=== PATIENT | female | born 1955 | race Caucasian/White ===

== ENCOUNTER 2025-06-20 13:29 | Inpatient (IN) ==
[2025-06-20] MEDS ORDERED: IOPAMIDOL 100 ML BOTTLE IV ONE (13:30)
[2025-06-20] MEDS: 0.9 % SODIUM CHLORIDE 1,000 ML IV ONE (13:55)
[2025-06-20] MEDS: ONDANSETRON 4 MG/2 ML VIAL IV ONE (13:58)
[2025-06-20 14:11] LABS: Basophils # (Auto) 0.03 K/mcL (0.00-0.30); Basophils % (Auto) 0.3 % (0.0-2.0); Eosinophils # (Auto) 0.22 K/mcL (0.00-0.70); Eosinophils % (Auto) 2.0 % (0.0-7.0); Hematocrit 43.9 % (34.1-44.9); Hemoglobin 14.1 g/dL (11.2-15.7); Lymphocytes # (Auto) 1.19 K/mcL (1.50-4.80); Lymphocytes % (Auto) 10.7 % (15.5-49.0); Mean Corpuscular HGB Conc 32.1 g/dL (31.0-36.0); Monocytes # (Auto) 0.76 K/mcL (0.10-0.90); Monocytes % (Auto) 6.9 % (1.0-12.0); Neutrophils % (Auto) 79.7 % (38.0-78.0); Platelet Count 246 K/mcL (140-440); RBC 4.69 M/mcL (3.59-5.38); WBC 11.1 K/mcL (4.5-11.0)
[2025-06-20 14:31] LABS: ALT/SGPT 97 U/L (<40); AST/SGOT 149 U/L (<32); Albumin 3.9 gm/dL (3.2-5.2); Albumin/Globulin Ratio 1.2 (1.0-2.3); Alkaline Phosphatase 136 U/L (39-117); Anion Gap 11.0 (8.0-16.0); Bilirubin,Total 0.9 mg/dL (0.1-1.0); Blood Urea Nitrogen 11 mg/dL (8-23); Calcium 10.7 mg/dL (8.6-10.4); Carbon Dioxide 22 mmol/L (22-30); Chloride 105 mmol/L (96-108); Globulin 3.2 gm/dL (2.2-3.7); Glucose 110 mg/dL (70-105); Potassium 3.8 mmol/L (3.3-5.1); Sodium 138 mmol/L (133-145)
[2025-06-20] MEDS: MAG HYDROX/AL HYDROX/SIMETH 30 ML ORAL.SUSP PO ONE (15:34)
[2025-06-20] MEDS: PANTOPRAZOLE 40 MG VIAL IV ONE (15:35)
[2025-06-20] MEDS: ACETAMINOPHEN 325 MG TABLET PO ONE (16:04)
[2025-06-20 16:14] LABS: Bacteria,Urine Many /hpf (0); Bilirubin,Urine NEGATIVE (Negative); Color,Urine LT. YELLOW; Glucose,Urine (UA) NEGATIVE (Negative); Ketones,Urine NEGATIVE (Negative); Leukocyte Esterase,Urine TRACE /uL (Negative); PH,Urine 6.5 (5.0-9.0); Protein,Urine NEGATIVE (Negative); Specific Gravity,Urine 1.010 (1.000-1.035); Urobilinogen,Urine 1.0 mg/dL
[2025-06-20] MEDS: KETOROLAC 15 MG/ML VIAL IV ONE (16:54)
[2025-06-20 17:03] LABS: HDL Cholesterol 74 mg/dL (>40); LDL Cholesterol,Calculated 133 mg/dL (<100); Triglycerides 95 mg/dL (<150)
[2025-06-20] MEDS: 0.9 % SODIUM CHLORIDE 1,000 ML IV SCH (17:14)
[2025-06-20 17:49] LABS: Barbiturate Screen,Urine None detected; Benzodiazepines Screen,Urine Suspect positive; Fentanyl, Urine Screen None Detected; Opiate Screen,Urine None detected; Oxycodone, Urine Screen None detected; Phencyclidine Screen,Urine None detected
[2025-06-20] MEDS ORDERED: SENNOSIDES 1 TABLET PO PRN (19:19)
[2025-06-20] MEDS ORDERED: NALOXONE HCL 0.4 MG/ML VIAL IV PRN (19:19)
[2025-06-20] MEDS: LACTATED RINGERS 1,000 ML IV SCH (19:40)
[2025-06-20 20:07] LABS: Hematocrit 41.8 % (34.1-44.9); Hemoglobin 13.4 g/dL (11.2-15.7)
[2025-06-20] MEDS: 0.9 % SODIUM CHLORIDE 10 ML SYRINGE IV SCH (20:09)
[2025-06-20 20:28] LABS: C-Reactive Protein 1.69 mg/dL (0.03-0.80)
[2025-06-20 20:30] LABS: ALT/SGPT 365 U/L (<40); AST/SGOT 665 U/L (<32); Albumin 3.5 gm/dL (3.2-5.2); Albumin/Globulin Ratio 1.3 (1.0-2.3); Alkaline Phosphatase 189 U/L (39-117); Anion Gap 11.0 (8.0-16.0); Bilirubin,Total 1.7 mg/dL (0.1-1.0); Blood Urea Nitrogen 8 mg/dL (8-23); Calcium 9.7 mg/dL (8.6-10.4); Carbon Dioxide 22 mmol/L (22-30); Chloride 107 mmol/L (96-108); Globulin 2.8 gm/dL (2.2-3.7); Glucose 146 mg/dL (70-105); Potassium 3.9 mmol/L (3.3-5.1); Sodium 140 mmol/L (133-145)
[2025-06-20] MEDS: HEPARIN 5,000 UNIT/ML VIAL SQ SCH (20:35)
[2025-06-20] MEDS: LACTATED RINGERS 500 ML IV ONE (22:03)
[2025-06-21 01:57] LABS: ALT/SGPT 473 U/L (<40); AST/SGOT 634 U/L (<32); Albumin 3.5 gm/dL (3.2-5.2); Albumin/Globulin Ratio 1.2 (1.0-2.3); Alkaline Phosphatase 230 U/L (39-117); Anion Gap 10.0 (8.0-16.0); Bilirubin,Total 2.1 mg/dL (0.1-1.0); Blood Urea Nitrogen 7 mg/dL (8-23); Calcium 9.6 mg/dL (8.6-10.4); Carbon Dioxide 24 mmol/L (22-30); Chloride 107 mmol/L (96-108); Globulin 2.9 gm/dL (2.2-3.7); Glucose 130 mg/dL (70-105); Potassium 4.1 mmol/L (3.3-5.1); Sodium 141 mmol/L (133-145)
[2025-06-21 06:19] LABS: Basophils # (Auto) 0.01 K/mcL (0.00-0.30); Basophils % (Auto) 0.1 % (0.0-2.0); Eosinophils # (Auto) 0.05 K/mcL (0.00-0.70); Eosinophils % (Auto) 0.4 % (0.0-7.0); Hematocrit 40.4 % (34.1-44.9); Hemoglobin 12.9 g/dL (11.2-15.7); Lymphocytes # (Auto) 0.46 K/mcL (1.50-4.80); Lymphocytes % (Auto) 3.9 % (15.5-49.0); Mean Corpuscular HGB Conc 31.9 g/dL (31.0-36.0); Monocytes # (Auto) 0.76 K/mcL (0.10-0.90); Monocytes % (Auto) 6.4 % (1.0-12.0); Neutrophils % (Auto) 88.8 % (38.0-78.0); Platelet Count 217 K/mcL (140-440); RBC 4.28 M/mcL (3.59-5.38); WBC 11.9 K/mcL (4.5-11.0)
[2025-06-21 06:30] LABS: C-Reactive Protein 6.83 mg/dL (0.03-0.80)
[2025-06-21 06:32] LABS: ALT/SGPT 458 U/L (<40); AST/SGOT 493 U/L (<32); Albumin 3.4 gm/dL (3.2-5.2); Albumin/Globulin Ratio 1.2 (1.0-2.3); Alkaline Phosphatase 240 U/L (39-117); Anion Gap 9.0 (8.0-16.0); Bilirubin,Direct 2.0 mg/dL (<0.3); Bilirubin,Total 2.4 mg/dL (0.1-1.0); Blood Urea Nitrogen 6 mg/dL (8-23); Calcium 9.3 mg/dL (8.6-10.4); Carbon Dioxide 24 mmol/L (22-30); Chloride 108 mmol/L (96-108); Globulin 2.8 gm/dL (2.2-3.7); Glucose 116 mg/dL (70-105); Phosphorous 3.2 mg/dL (2.5-4.5); Potassium 4.0 mmol/L (3.3-5.1); Sodium 141 mmol/L (133-145); Triglycerides 60 mg/dL (<150); Uric Acid 4.0 mg/dL (2.5-8.0)
[2025-06-21] MEDS: ONDANSETRON 4 MG/2 ML VIAL IV PRN (15:35)
[2025-06-21 15:37] LABS: ALT/SGPT 383 U/L (<40); AST/SGOT 312 U/L (<32); Albumin 3.2 gm/dL (3.2-5.2); Albumin/Globulin Ratio 1.3 (1.0-2.3); Alkaline Phosphatase 229 U/L (39-117); Anion Gap 7.0 (8.0-16.0); Bilirubin,Direct 2.4 mg/dL (<0.3); Bilirubin,Total 2.9 mg/dL (0.1-1.0); Blood Urea Nitrogen 8 mg/dL (8-23); Calcium 8.9 mg/dL (8.6-10.4); Carbon Dioxide 24 mmol/L (22-30); Chloride 109 mmol/L (96-108); Globulin 2.4 gm/dL (2.2-3.7); Glucose 101 mg/dL (70-105); Phosphorous 2.5 mg/dL (2.5-4.5); Potassium 3.7 mmol/L (3.3-5.1); Sodium 140 mmol/L (133-145); Triglycerides 52 mg/dL (<150); Uric Acid 4.1 mg/dL (2.5-8.0)
[2025-06-22 06:49] LABS: Basophils # (Auto) 0.01 K/mcL (0.00-0.30); Basophils % (Auto) 0.2 % (0.0-2.0); Eosinophils # (Auto) 0.54 K/mcL (0.00-0.70); Eosinophils % (Auto) 8.1 % (0.0-7.0); Hematocrit 39.0 % (34.1-44.9); Hemoglobin 12.1 g/dL (11.2-15.7); Lymphocytes # (Auto) 0.98 K/mcL (1.50-4.80); Lymphocytes % (Auto) 14.7 % (15.5-49.0); Mean Corpuscular HGB Conc 31.0 g/dL (31.0-36.0); Monocytes # (Auto) 0.69 K/mcL (0.10-0.90); Monocytes % (Auto) 10.4 % (1.0-12.0); Neutrophils % (Auto) 66.1 % (38.0-78.0); Platelet Count 192 K/mcL (140-440); RBC 4.02 M/mcL (3.59-5.38); WBC 6.7 K/mcL (4.5-11.0)
[2025-06-22 06:57] LABS: ALT/SGPT 320 U/L (<40); AST/SGOT 196 U/L (<32); Albumin 3.1 gm/dL (3.2-5.2); Albumin/Globulin Ratio 1.1 (1.0-2.3); Alkaline Phosphatase 237 U/L (39-117); Anion Gap 9.0 (8.0-16.0); Bilirubin,Direct 2.3 mg/dL (<0.3); Bilirubin,Total 2.7 mg/dL (0.1-1.0); Blood Urea Nitrogen 9 mg/dL (8-23); Calcium 9.0 mg/dL (8.6-10.4); Carbon Dioxide 21 mmol/L (22-30); Chloride 105 mmol/L (96-108); Globulin 2.9 gm/dL (2.2-3.7); Glucose 68 mg/dL (70-105); Phosphorous 2.3 mg/dL (2.5-4.5); Potassium 3.7 mmol/L (3.3-5.1); Sodium 135 mmol/L (133-145); Triglycerides 72 mg/dL (<150); Uric Acid 3.9 mg/dL (2.5-8.0)
[2025-06-22] MEDS: LACTATED RINGERS 1,000 ML IV SCH ×2 (12:49→16:08)
[2025-06-22] MEDS: IPRATROPIUM/ALBUTEROL 3 ML AMPUL.NEB NEB SCH (13:26)
[2025-06-22] MEDS: VERAPAMIL 120 MG TAB.XL.24H PO SCH (21:53)
[2025-06-23 07:20] LABS: ALT/SGPT 219 U/L (<40); AST/SGOT 91 U/L (<32); Albumin 3.1 gm/dL (3.2-5.2); Albumin/Globulin Ratio 1.1 (1.0-2.3); Alkaline Phosphatase 251 U/L (39-117); Anion Gap 8.0 (8.0-16.0); Bilirubin,Direct 1.3 mg/dL (<0.3); Bilirubin,Total 1.6 mg/dL (0.1-1.0); Blood Urea Nitrogen 6 mg/dL (8-23); Calcium 8.9 mg/dL (8.6-10.4); Carbon Dioxide 25 mmol/L (22-30); Chloride 106 mmol/L (96-108); Globulin 2.8 gm/dL (2.2-3.7); Glucose 78 mg/dL (70-105); Phosphorous 2.3 mg/dL (2.5-4.5); Potassium 3.9 mmol/L (3.3-5.1); Sodium 139 mmol/L (133-145); Triglycerides 98 mg/dL (<150); Uric Acid 4.2 mg/dL (2.5-8.0)
[2025-06-23] MEDS: LEVOTHYROXINE 100 MCG TABLET PO SCH (08:17)
[2025-06-23] MEDS: LEVOTHYROXINE 75 MCG TABLET PO SCH (08:17)
[2025-06-23] MEDS: LOSARTAN 25 MG TABLET PO SCH (08:17)
[2025-06-23] MEDS: Fluticasone-Umeclidin-Vilanter [Trelegy Ellipta] 200MCG-62.5MCG-25MCG Inhaler INH SCH (08:18)
[2025-06-23 08:48] LABS: Basophils # (Auto) 0.03 K/mcL (0.00-0.30); Basophils % (Auto) 0.5 % (0.0-2.0); Eosinophils # (Auto) 0.39 K/mcL (0.00-0.70); Eosinophils % (Auto) 6.5 % (0.0-7.0); Hematocrit 37.4 % (34.1-44.9); Hemoglobin 11.5 g/dL (11.2-15.7); Lymphocytes # (Auto) 1.22 K/mcL (1.50-4.80); Lymphocytes % (Auto) 20.5 % (15.5-49.0); Mean Corpuscular HGB Conc 30.7 g/dL (31.0-36.0); Monocytes # (Auto) 0.69 K/mcL (0.10-0.90); Monocytes % (Auto) 11.6 % (1.0-12.0); Neutrophils % (Auto) 60.6 % (38.0-78.0); Platelet Count 191 K/mcL (140-440); RBC 3.85 M/mcL (3.59-5.38); WBC 6.0 K/mcL (4.5-11.0)
[2025-06-23] MEDS: POTASSIUM PHOSPHATE 20 MEQ in DEXTROSE 5% IN WATER 250 ML IV ONE (11:42)
[2025-06-23] MEDS: LACTATED RINGERS 1,000 ML IV SCH (18:02)
[2025-06-24 06:18] LABS: Basophils # (Auto) 0.01 K/mcL (0.00-0.30); Basophils % (Auto) 0.1 % (0.0-2.0); Eosinophils # (Auto) 0.18 K/mcL (0.00-0.70); Eosinophils % (Auto) 2.4 % (0.0-7.0); Hematocrit 37.4 % (34.1-44.9); Hemoglobin 12.0 g/dL (11.2-15.7); Lymphocytes # (Auto) 1.31 K/mcL (1.50-4.80); Lymphocytes % (Auto) 17.6 % (15.5-49.0); Mean Corpuscular HGB Conc 32.1 g/dL (31.0-36.0); Monocytes # (Auto) 0.77 K/mcL (0.10-0.90); Monocytes % (Auto) 10.3 % (1.0-12.0); Neutrophils % (Auto) 68.9 % (38.0-78.0); Platelet Count 222 K/mcL (140-440); RBC 4.00 M/mcL (3.59-5.38); WBC 7.5 K/mcL (4.5-11.0)
[2025-06-24 09:05] LABS: ALT/SGPT 175 U/L (<40); AST/SGOT 65 U/L (<32); Albumin 3.2 gm/dL (3.2-5.2); Albumin/Globulin Ratio 1.1 (1.0-2.3); Alkaline Phosphatase 299 U/L (39-117); Anion Gap 11.0 (8.0-16.0); Bilirubin,Direct 1.2 mg/dL (<0.3); Bilirubin,Total 1.5 mg/dL (0.1-1.0); Blood Urea Nitrogen 3 mg/dL (8-23); Calcium 9.0 mg/dL (8.6-10.4); Carbon Dioxide 25 mmol/L (22-30); Chloride 104 mmol/L (96-108); Globulin 2.9 gm/dL (2.2-3.7); Glucose 84 mg/dL (70-105); Phosphorous 2.0 mg/dL (2.5-4.5); Potassium 3.4 mmol/L (3.3-5.1); Sodium 140 mmol/L (133-145); Triglycerides 97 mg/dL (<150); Uric Acid 3.8 mg/dL (2.5-8.0)
[2025-06-24] MEDS: NEUTRA PHOS 1 PACKET PO ONE (09:35)
[2025-06-24] MEDS: POTASSIUM PHOSPHATE 40 MEQ in DEXTROSE 5% IN WATER 500 ML IV ONE (09:35)
== END 2025-06-24 14:55 | disposition home or self-care (01) | DRG 440 ==
LOC: ED 13:29 → MEDSUR 19:18
PROVIDERS: ADMIT Student in an Organized Health Care Education/Training Program; ATTEND Student in an Organized Health Care Education/Training Program